=== PATIENT | female | born 1995 | race Caucasian/White ===

== ENCOUNTER 2016-10-20 22:27 | Emergency (ER) | payer SELFPAY ==
[~2016-10-20] VITALS: Ht 167.6 cm; Wt 68.0 kg
[2016-10-20 22:59] VITALS: Ht 167.6 cm; Wt 68.0 kg
== END 2016-10-20 23:19 | disposition left against medical advice (07) ==
LOC: FTE 22:27
DX: Z53.21 Procedure and treatment not carried out due to patient leaving prior to being seen by health care provider (principal)

== ENCOUNTER 2016-11-18 19:11 | Emergency (ER) | payer BC, OTHER ==
[~2016-11-18] VITALS: Ht 165.1 cm; Wt 71.5 kg
[2016-11-18 20:11] VITALS: Ht 165.1 cm; Wt 71.5 kg
[2016-11-18] MEDS ORDERED: KENC1 TOP (20:37)
[2016-11-18] MEDS ORDERED: BEN50 PO (20:37)
[2016-11-18] MEDS ORDERED: PRED50TA PO (20:37)
[2016-11-18 20:55] VITALS: BP 102/56; PULSE 79; RESP 20; TEMP 98.3
--- NOTE | 2016-11-18 20:58 | ERD ---
ER Documentation Chief Complaint Date/Time DATE: 11/18/16 TIME: 20:56 Chief Complaint Rash X2 weeks HPI 21-year-old female presents here in emergency department for complaints of a rash in the left forearm for 2 weeks, see primary care doctor and media production operator specialist, was given steroids, it helped, after the medication was consumed, patient started to have the itching again. Patient denies any fever or chills. Patient denies any other parts of the body with a rash. Patient does not have any family members with the same type of symptoms. ROS All systems reviewed and are negative except as per history of present illness. Medications Home Meds Active Scripts Prednisone* (Prednisone*) 50 Mg Tablet, 50 MG PO DAILY, #3 TAB Prov:HEIDY BERNAL NP 11/18/16 Triamcinolone Acetonide (Triamcinolone Acetonide) 0.1% - 15 Gm Cream.gm., 1 APPLIC TOP BID, #1 TUB Prov:HEIDY BERNAL NP 11/18/16 Diphenhydramine Hcl* (Benadryl*) 50 Mg Cap, 50 MG PO Q6H Y for ITCHING/RASH, # 30 CAP Prov:HEIDY BERNAL NP 11/18/16 Allergies Allergies: Coded Allergies: cephalexin (Verified Allergy, Severe, RASH, 10/20/16) PMhx/Soc Medical and Surgical Hx: pt denies Medical Hx, pt denies Surgical Hx History of Surgery: No Anesthesia Reaction: No Hx Neurological Disorder: No Hx Respiratory Disorders: No Hx Cardiac Disorders: No Hx Psychiatric Problems: No Hx Miscellaneous Medical Probl: No Hx Alcohol Use: No Hx Substance Use: No Hx Tobacco Use: No Smoking Status: Never smoker FmHx Family History: No coronary disease, No diabetes, No other Physical Exam Vitals Vital Signs Date Time Temp Pulse Resp B/P Pulse Ox O2 Delivery O2 Flow Rate FiO2 11/18/16 20:11 97.7 80 20 114/63 98 Physical Exam GENERAL: The patient is well developed and appropriate for usual state of health, in no apparent distress. CHEST: Clear to auscultation bilaterally. There are no rales, wheezes or rhonchi. HEART: Regular rate and rhythm. No murmurs, clicks, rubs or gallops. No S3 or S4. ABDOMEN: Soft, nontender and nondistended. Good bowel sounds. No rebound or guarding. No gross peritonitis. No gross organomegaly or masses. No Crane sign or McBurney point tenderness. BACK: No midline or flank tenderness. EXTREMITIES: Equal pulses bilaterally. There is no peripheral clubbing, cyanosis or edema. No focal swelling or erythema. Full range of motion. Grossly neurovascularly intact. NEURO: Alert and oriented. Cranial nerves 2-12 intact. Motor strength in all 4 extremities with 5/5 strength. Sensation grossly intact. Normal speech and gait. SKIN: Maculopapular rash with lichenification noted in the left forearm. There is no apparent ecchymosis or petechia. The skin is warm and dry. HEMATOLOGIC AND LYMPHATIC: There is no evidence of excessive bruising or lymphedema. No gross cervical, axillary, or inguinal lymphadenopathy. Procedures/MDM Medical decision making: Patient's rash nonspecific at this time, possible some form of dermatitis, can be a contact dermatitis. It can also be contact dermatitis. No symptoms of anaphylactic shock. No symptoms of any contagious rash. No symptoms of any sepsis at this time. Patient presents hemodynamically stable. Patient was given for Benadryl, triamcinolone 1% cream, prednisone, is advised to follow-up with primary care doctor in 2-3 days reevaluation of symptoms. Patient was advised to return to emergency department for any worsening symptoms, see media production operator specialist for further evaluation. Departure Diagnosis: Primary Impression: Rash Condition: Stable Patient Instructions: Self-Care for Skin Rashes, Dermatitis, Non-Specific HEIDY BERNAL NP Nov 18, 2016 20:58
== END 2016-11-18 21:00 | disposition home or self-care (01) ==
LOC: FTE 19:11
DX: R21 Rash and other nonspecific skin eruption (principal)
CPT/HCPCS: 99284